=== PATIENT | male | born 1995 | race Caucasian/White ===

== ENCOUNTER 2017-12-03 09:28 | Emergency (ER) | payer SELFPAY ==
[2017-12-03 10:23] VITALS: BP 129/80
--- NOTE | 2017-12-03 10:53 | UC ---
Epistaxis Nasal HPI - HPI Summary HPI Summary: 22 y/o male presents to the urgent care c/o nose pain s/p nose pain s/p injury at work after a dumpster lid fell on top of his nose last night around 1800 . Pt reports he had nose bleed from RT nostril for 3 minutes. It stopped after applying pressure. Pain is 7/10 at touch. mild swelling. Pt denies LOC, SANTOS, dizziness, neck pain, N/V/D, ear pain, abdominal pain, SOB or chest pain, visual disturbance or eye pain. He applied ice but has not taking anything to alleviate symptoms. - History of Current Complaint Chief Complaint: UCTrauma Stated Complaint: NOSE INJURY WC Time Seen by Provider: 12/03/17 10:49 Hx Obtained From: Patient Onset/Duration: Sudden Onset, Lasting Hours - 15hrs, Still Present Timing: Constant Severity Initially: Moderate Severity Currently: Moderate Pain Intensity: 7 Pain Scale Used: 0-10 Numeric Character: Heavy Aggravating Factor(s): Nasal Trauma Alleviating Factor(s): Ice Associated Signs And Symptoms: Positive: Nasal Discharge - bledding or few minutes after injury - Allergies/Home Medications Allergies/Adverse Reactions: Allergies Allergy/AdvReac Type Severity Reaction Status Date / Time MS Latex [Latex] Allergy Rash Verified 12/03/17 10:19 PMH/Surg Hx/FS Hx/Imm Hx Previously Healthy: Yes Respiratory History: Asthma - Surgical History Surgical History: None - Family History Known Family History: Positive: None - Pt denies FMHX - Social History Occupation: Employed Full-time Lives: With Family Alcohol Use: Rare Substance Use Type: None Smoking Status (MU): Never Smoked Tobacco Review of Systems Constitutional: Negative Skin: Negative Eyes: Negative ENT: Other - Nose pain s/p injuty Respiratory: Negative Cardiovascular: Negative Gastrointestinal: Negative Genitourinary: Negative Motor: Negative Neurovascular: Negative Musculoskeletal: Negative Neurological: Headache Psychological: Negative Is Patient Immunocompromised?: No All Other Systems Reviewed And Are Negative: Yes Physical Exam Triage Information Reviewed: Yes Vital Signs: Initial Vital Signs Temp 98.5 F 12/03/17 10:17 Pulse 66 12/03/17 10:17 Resp 16 12/03/17 10:17 BP 129/80 12/03/17 10:17 Pulse Ox 100 12/03/17 10:17 - Additional Comments Vital signes: reviewed General: well developed , well nourished male sitting in the examining table w/ o anuy apparent distress Skin: [place], warm and dry. HEENT: -Head: atraumatic, nontender to palpation -Eyes: sclera and conjunctiva clear. PERRLA, EOMI w/out limitation or pain, no periorbital step-off, ecchymosis, or deformity. No infraorbital anesthesia., No raccoon eyes -Ears: TMs normal, no hemotympanum or cuba sign. -Nose/Face: no epistaxis or CSF leak observed, mild soft tissue swelling on Rt side of nose, no ecchymosis, or open wounds. No bony step-off or obvious deformity. No septal hematoma. No midface instability or movement or superior alveolar ridge. No bony tenderness of zygoma, maxilla, mandible. Point tendeness over the RT side of nose -Mouth/Throat: no intraoral trauma, teeth and mandible stable. Posterior pharynx clear. Neck: FROM, non tender to firm palpation of bony posterior cervical spine, no paraspinal soft tissue swelling or tender to palpation. Neuro: A&Ox4, GCS 15, CN II-XII, grossly intact, no focal neuro deficits. Epistaxis Nasal Course/Dx - Course Course Of Treatment: 22 y/o male presents to the urgent care c/o nose pain s/p nose pain s/p injury at work after a dumpster lid fell on top of his nose last night around 1800 . Pt reports he had nose bleed from RT nostril for 3 minutes. It stopped after applying pressure. Pain is 7/10 at touch. mild swelling. Pt denies LOC, SANTOS, dizziness, neck pain, N/V/D, ear pain, abdominal pain, SOB or chest pain, visual disturbance or eye pain. He applied ice but has not taking anything to alleviate symptoms. Hx obtained. Pt with mild swelling on the RT lateral side of nose and tenderness to palpation,mild septum deviated to Rt side , no posterior or anterior epistaxis on examination. Maxillofacial CT ordered, Impression: Deviated septum w/ Rt sided spurring, no facial fracture observed. Pt Rx Ibuprofen PO to alleviate symptoms, advised to apply ICE. Advised If symptoms worsen to go immediately to the ER for further management. Otherwise if not improvement to f/u with ENT DR Caballero for further evaluation and treatment. Pt understood and agreed w/ plan of care. - Differential Dx/Diagnosis Differential Diagnosis/HQI/PQRI: Epistaxis, Polyps, Sinusitis, Trauma, Other - facial fracture, nose fracture Provider Diagnoses: 1- Nose contusion s/p injury. 2- Deviated septum - Physician Notifications Discussed Patient Care With: Anirudh Lee - DR Lee agreed w/ Pt's plan of care Discharge - Discharge Plan Condition: Stable Disposition: HOME Prescriptions: Ibuprofen TAB* [Motrin TAB* 800 MG] 800 mg PO Q6H PRN #20 tab PRN Reason: Pain Patient Education Materials: Nasal Contusion (ED) Forms: *Work Release Referrals: [facility] – [place] PHYSICIAN REFERRAL [Outside] - 1 Week Rogelio Caballero MD [Medical Doctor] - If Needed Additional Instructions: 1-Please take ibuprofen PO q6-8hrs prn as instructed after meals to alleviate pain and swelling.Apply ice, Increase fluid intake, eat well, rest and avoid strenuous exercise 2-If symptoms do not improve or worsen please f/u with your PCP or ENT DR Caballero for further evaluation and treatment.
--- NOTE | 2017-12-03 11:35 | RAD ---
HISTORY: No status post injury COMPARISONS: None TECHNIQUE: Multiple contiguous axial CT scans were obtained of the face without intravenous contrast, with coronal and sagittal multiplanar reformations. FINDINGS: BONES: There is no displaced fracture or dislocation. The orbital rim is intact. The zygomatic arch is intact. The pterygoid plates are intact. ORBITS: The globes are round. The optic nerves are symmetric. The extraocular musculature is normal. There is no post septal or intraconal inflammatory change. There is no retrobulbar hematoma. PARANASAL SINUSES: There is a mucous retention cyst versus polypoid mucosal thickening of the right maxillary sinus. The nasal septum is deviated to the right with right-sided spurring. BRAIN AND SOFT TISSUE: Unremarkable. OTHER: None. IMPRESSION: NO FACIAL FRACTURE
== END 2017-12-03 11:53 | disposition home or self-care (01) ==
LOC: UCCORT 09:28
DX: S00.33XA Contusion of nose, initial encounter (principal); J34.2 Deviated nasal septum; W22.8XXA Striking against or struck by other objects, initial encounter; Y92.9 Unspecified place or not applicable
CPT/HCPCS: 70486; 99201; G0463

== ENCOUNTER 2019-04-18 13:58 | Emergency (ER) | payer OTHER ==
[2019-04-18 14:29] VITALS: BP 116/76
--- NOTE | 2019-04-18 14:32 | UC ---
HPI BURN - HPI Summary HPI Summary: patient works at [employer]. he ws cleaning the fryer and got hot grease on his right fingers and forearm. has had the hand in cold water since it occurred 1 hour ago. - History of Current Complaint Stated Complaint: RT HAND/ARM BURN (W/C) Time Seen by Provider: 04/18/19 14:23 Hx Obtained From: Patient Occurred: Hours Ago - 1 Onset Severity: Moderate Current Severity: Moderate Character: Direct Thermal Contact, Blisters: Intact Aggravating Factor(s): Unknown Alleviating Factor(s): Cool Soaks Occupational Injury: Yes - Allergy/Home Medications Allergies/Adverse Reactions: Allergies Allergy/AdvReac Type Severity Reaction Status Date / Time latex Allergy Rash Verified 04/18/19 14:30 Home Medications: Home Medications NK [No Home Medications Reported] 04/18/19 [History Confirmed 04/18/19] PMH/Surg Hx/FS Hx/Imm Hx Previously Healthy: Yes - Surgical History Surgical History: None - Family History Known Family History: Positive: None - Pt denies FMHX Negative: Cardiac Disease, Hypertension - Social History Alcohol Use: Rare Substance Use Type: None Smoking Status (MU): Never Smoked Tobacco Review of Systems All Other Systems Reviewed And Are Negative: Yes Skin: Positive: Other - erythem on the 4 fingers and wrist of right arm Is Patient Immunocompromised?: No Physical Exam Triage Information Reviewed: Yes Appearance: Well-Appearing, Well-Nourished, Pain Distress Vital Signs Reviewed: Yes Eye Exam: Normal ENT Exam: Normal Dental Exam: Normal Neck exam: Normal Respiratory Exam: Normal Cardiovascular Exam: Normal Abdominal Exam: Normal Bowel Sounds: Positive: Present Musculoskeletal Exam: Normal Neurological Exam: Normal Psychological Exam: Normal Skin: Positive: Other - erythema for the 4 fingers and blisters starting to frm on the anterior aspect of the right wrist Burn Calculation - Right Arm 9% Right Arm 1st De Right Arm 2nd De - Total 1st Deg Total: 2 2nd Deg Total: 1 Total % BSA: 3 - [place] Formula for Fluid Resuscitation Total % BSA 2nd & 3rd Degree: 1 24 -Hour Fluid Replacement: 0.0 Re-Evaluation - Re-Evaluation First Eval Change: Improved - pain has improved Course/Dx Burn - Course Course Of Treatment: hx obtained, exam performed ,meds reviewed, ibuprofen given, cold water soak performed - Differential Dx - Burn Differential Diagnoses: Direct Contact Thermal Burn - Diagnoses Provider Diagnosis: Burn, hand, first degree, Burn, wrist, second degree Discharge - Sign-Out/Discharge Documenting (check all that apply): Patient Departure All imaging exams completed and their final reports reviewed: No Studies - Discharge Plan Condition: Stable Disposition: HOME Patient Education Materials: Second Degree Burn (ED) Forms: *Work Release Referrals: No Primary Care Phys,NOPCP [Primary Care Provider] - Curtis Knight MD [Medical Doctor] - Additional Instructions: 1. use the silvadene and change bandages daily for the next 4-5 days 2. continue with cool compresses and ice for the next 24 hours as needed. 3. Use motrin every 6 hours for pain 4. Follow up with Dr Knight as needed for workers comp. 5. If blisters develop. cover loosely and try to keep them intact. - Billing Disposition and Condition Condition: STABLE Disposition: Home
[2019-04-18] MEDS ORDERED: Ibuprofen TAB* 600 MG PO ONE (14:33)
[2019-04-18] MEDS ORDERED: Silver Sulfadiazine 1%* 20 GM TOPICAL ONE (15:13)
== END 2019-04-18 15:40 | disposition home or self-care (01) ==
LOC: UCCORT 13:58
DX: T23.271A Burn of second degree of right wrist, initial encounter (principal); T23.131A Burn of first degree of multiple right fingers (nail), not including thumb, initial encounter; T31.0 Burns involving less than 10% of body surface; X10.2XXA Contact with fats and cooking oils, initial encounter; Y93.G1 Activity, food preparation and clean up; Y92.511 Restaurant or cafe as the place of occurrence of the external cause; Y99.0 Civilian activity done for income or pay; Z91.040 Latex allergy status
CPT/HCPCS: 16020; 99212; 99213; A9270-GY; G0463

== ENCOUNTER 2019-10-29 09:46 | Emergency (ER) | payer MEDICAID, OTHER ==
[2019-10-29 11:01] VITALS: BP 131/79
--- NOTE | 2019-10-29 11:49 | UC ---
Respiratory Complaint HPI - HPI Summary HPI Summary: Pt presents with c/o cough, wheezing, body aches, nasal congestion, chills X 3 days. - History of Current Complaint Chief Complaint: UCGeneralIllness Stated Complaint: CHEST COLD/SORETHROAT Time Seen by Provider: 10/29/19 11:14 Hx Obtained From: Patient Onset/Duration: Sudden Onset, Lasting Days, Still Present Timing: Constant Severity Initially: Mild Severity Currently: Moderate Pain Intensity: 8 Character: Cough: Nonproductive Aggravating Factors: Deep Breaths, Recumbent Position Alleviating Factors: Nothing Associated Signs And Symptoms: Positive: Chills, Wheezing, URI, Nasal Congestion - Risk Factors Pulmonary Embolism Risk Factors: Negative Cardiac Risk Factors: Negative Pseudomonas Risk Factors: Negative Tuberculosis Risk Factors: Negative - Allergies/Home Medications Allergies/Adverse Reactions: Allergies Allergy/AdvReac Type Severity Reaction Status Date / Time latex Allergy Rash Verified 10/29/19 10:57 Home Medications: Home Medications D-Methorphan/PE/Acetaminophen [Daytime Cold-Flu Relief Softgl] 2 tab PO ONCE [History Confirmed 10/29/19] PMH/Surg Hx/FS Hx/Imm Hx Previously Healthy: Yes - Surgical History Surgical History: None - Family History Known Family History: Positive: None - Pt denies FMHX Negative: Cardiac Disease, Hypertension - Social History Occupation: Employed Full-time Lives: With Family Alcohol Use: Rare Substance Use Type: None Smoking Status (MU): Never Smoked Tobacco Have You Smoked in the Last Year: No Review of Systems All Other Systems Reviewed And Are Negative: Yes Constitutional: Positive: Chills, Fatigue Skin: Positive: Negative Eyes: Positive: Negative ENT: Positive: Sinus Congestion Respiratory: Positive: Cough, Other - wheezing Cardiovascular: Positive: Negative Gastrointestinal: Positive: Negative Genitourinary: Positive: Negative Motor: Positive: Negative Neurovascular: Positive: Negative Musculoskeletal: Positive: Myalgia Neurological: Positive: Negative Psychological: Positive: Negative Is Patient Immunocompromised?: No Physical Exam Triage Information Reviewed: Yes Appearance: Ill-Appearing Vital Signs: Initial Vital Signs Temp 98.7 F 10/29/19 10:57 Pulse 101 10/29/19 10:57 Resp 15 10/29/19 10:57 BP 131/79 10/29/19 10:57 Pulse Ox 97 10/29/19 10:57 Vital Signs Reviewed: Yes Eye Exam: Normal ENT: Positive: Nasal congestion Dental Exam: Normal Neck exam: Normal Respiratory: Positive: Decreased breath sounds, Wheezing Cardiovascular Exam: Normal Musculoskeletal Exam: Normal Neurological Exam: Normal Psychological Exam: Normal Skin Exam: Normal Respiratory Course/Dx - Differential Dx/Diagnosis Differential Diagnosis/HQI/PQRI: Bronchitis, Influenza, Sinusitis Provider Diagnosis: Bronchitis, Wheezing on both sides of chest Discharge ED - Sign-Out/Discharge Documenting (check all that apply): Patient Departure All imaging exams completed and their final reports reviewed: No Studies - Discharge Plan Condition: Stable Disposition: HOME Prescriptions: Albuterol HFA INHALER* [Ventolin HFA Inhaler*] 1 - 2 puff INH Q4H PRN #1 mdi PRN Reason: Sob/Wheezing Benzonatate CAP* [Tessalon 100 MG CAP*] 100 mg PO Q8H PRN #30 cap PRN Reason: Cough Guaifenesin/Pseudoephedrne HCl [Mucinex D ER 600-60 mg Tablet] 1 each PO Q12H # 14 tab.er.12h predniSONE TAB* [Deltasone 20 MG TAB*] 60 mg PO DAILY #12 tab Patient Education Materials: Viral Syndrome (ED), Acute Cough (ED), Wheezing ( ED) Forms: *Work Release Referrals[place] [facility] [place]] - If Needed No Primary Care Phys,NOPCP [Primary Care Provider] - - Billing Disposition and Condition Condition: STABLE Disposition: Home - Attestation Statements Provider Attestation: Per institutional requirements, I have reviewed the chart, however, I was not consulted specifically or made aware of this patient by the midlevel provider. I did not personally evaluate, interact with , or disposition this patient.
== END 2019-10-29 12:00 | disposition home or self-care (01) ==
LOC: UCCORT 09:46
DX: J40 Bronchitis, not specified as acute or chronic (principal); R06.2 Wheezing; R09.81 Nasal congestion; Z91.040 Latex allergy status
CPT/HCPCS: 99212; G0463

== ENCOUNTER 2020-01-09 10:52 | Emergency (ER) | payer MEDICAID, OTHER ==
[2020-01-09 11:22] VITALS: BP 136/71
--- NOTE | 2020-01-09 11:35 | UC ---
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 Still has pain but somewhat improved. Denies bruising, redness or warmth. No known trauma. 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 not on HRT. no recent suregry or long travel -no CP/sob -pain was 10/10 - took 3-4 mins to resolve,. still ahs some pain. worse when walking - History of Current Complaint Chief Complaint: UCLowerExtremity Stated Complaint: L LEG PAIN Time Seen by Provider: 01/09/20 11:19 Pain Intensity: 7 - Allergies/Home Medications Allergies/Adverse Reactions: Allergies Allergy/AdvReac Type Severity Reaction Status Date / Time latex Allergy Rash Verified 01/09/20 11:19 Home Medications: Home Medications NK [No Home Medications Reported] 01/09/20 [History Confirmed 01/09/20] PMH/Surg Hx/FS Hx/Imm Hx Previously Healthy: Yes - Surgical History Surgical History: None - Family History Known Family History: Positive: Other - denies blood clots or clotting disorders Negative: Cardiac Disease, Hypertension - Social History Alcohol Use: Rare Substance Use Type: None Smoking Status (MU): Never Smoked Tobacco Have You Smoked in the Last Year: No Review of Systems All Other Systems Reviewed And Are Negative: Yes Constitutional: Positive: Negative. Negative: Fever, Chills, Fatigue Skin: Positive: Negative. Negative: Rash, Bruising Eyes: Positive: Negative ENT: Positive: Negative Respiratory: Positive: Negative. Negative: Shortness Of Breath Cardiovascular: Positive: Negative. Negative: Palpitations, Chest Pain Gastrointestinal: Positive: Negative Genitourinary: Positive: Negative Motor: Positive: Negative, Other Neurovascular: Positive: Negative Musculoskeletal: Positive: Calf Tenderness Neurological/Mental Status: Positive: Negative Psychological: Positive: Negative Is Patient Immunocompromised?: No Physical Exam Triage Information Reviewed: Yes Appearance: Well-Appearing, No Pain Distress, Well-Nourished - very pleasant Vital Signs: Initial Vital Signs Temp 98.3 F 01/09/20 11:16 Pulse 87 01/09/20 11:16 Resp 15 01/09/20 11:16 BP 136/71 01/09/20 11:16 Pulse Ox 98 01/09/20 11:16 Vital Signs Reviewed: Yes Eye Exam: Normal Respiratory Exam: Normal Respiratory: Positive: Chest non-tender, Lungs clear, Normal breath sounds, No respiratory distress, No accessory muscle use, Wheezing. Negative: Crackles, Rhonchi, Stridor Cardiovascular Exam: Normal Cardiovascular: Positive: RRR, No Murmur, Pulses Normal, Brisk Capillary Refill Abdominal Exam: Normal Abdomen Description: Positive: Nontender Musculoskeletal Exam: Normal Musculoskeletal: Positive: Other: - right calf - no redness, cool to touch, not tender. calf circumference 15 inches rt and left. vuisibly symmetrical. FROM foot. + 2 DP/PT pulses. Neurological Exam: Normal Skin Exam: Normal Lower Extremity Course/Dx - Course Course Of Treatment: Counselled and reassured. low risk of DVT. no Fhx. calf is not red, warm or swollen, no RFs (other than sedentary job), no Fhx -understands we do not have US for diagnostic imaging. however, there is low clinical suspicion and US is not indicated. understands if sx change to go to ER with US is available. - Differential Dx/Diagnosis Differential Diagnosis/HQI/PQRI: Cellulitis, Sprain, Strain Provider Diagnosis: Muscle spasm of calf Discharge ED - Sign-Out/Discharge Documenting (check all that apply): Patient Departure All imaging exams completed and their final reports reviewed: No Studies - Discharge Plan Condition: Stable Disposition: HOME Patient Education Materials: Muscle Spasm (ED) Referrals: No Primary Care Phys,NOPCP [Primary Care Provider] - Additional Instructions: Make sure to drink plenty of water and some gatorade over the next few days. You should go to the ER with worsening symptoms, redness, chest pain/shortness of breath. This is unlikely to be a blood clot. Follow up if your symptoms do not resolve. - Billing Disposition and Condition Condition: STABLE Disposition: Home
== END 2020-01-09 11:46 | disposition home or self-care (01) ==
LOC: UCCORT 10:52
DX: M62.831 Muscle spasm of calf (principal); Z91.040 Latex allergy status
CPT/HCPCS: 99211; G0463